=== PATIENT | male | born 1965 | race Two or more races ===

== ENCOUNTER 2022-01-30 17:34 | Emergency (ER) | payer OTHER ==
[~2022-01-30] VITALS: Ht 165.1 cm; Wt 68.0 kg
[2022-01-30] MEDS ORDERED: HYDROMORPHONE 1 MG/1 ML DISP.SYRIN ONE ×2 (17:39→21:34)
[2022-01-30] MEDS ORDERED: ONDANSETRON 4 MG/2 ML VIAL ONE (17:39)
[2022-01-30] MEDS ORDERED: IV NORMAL SALINE 1000 ML BAG IV ONE (17:45)
[2022-01-30] MEDS ORDERED: ONDANSETRON 4 MG/2 ML VIAL IV ONE (17:45)
[2022-01-30] MEDS ORDERED: HYDROMORPHONE 1 MG/1 ML DISP.SYRIN IV ONE ×2 (17:45→21:00)
--- NOTE | 2022-01-30 17:53 | NUR ---
PT IS IN ROOM #4A. DR LUCIO EVALUATED THE PT.
[2022-01-30 18:02] LABS: HEMATOCRIT 39.4 % (36.7-47.1); MEAN CORPUSCULAR HEMOGLOBIN 28.9 uug (23.8-33.4); PLATELET COUNT (AUTO) 224 K/uL (152-348)
[2022-01-30 18:12] LABS: CREATININE 1.2 mg/dL (0.6-1.3)
[2022-01-30] MEDS ORDERED: HYDROMORPHONE 1 MG/1 ML DISP.SYRIN IV PRN (18:15)
[2022-01-30] MEDS ORDERED: LIDOCAINE 2% (GLYDO= UROJET) 10 ML JELLY MM ONE ×2 (19:39→20:00)
[2022-01-30] MEDS ORDERED: ATEN50TA PO (20:13)
[2022-01-30] MEDS ORDERED: TAMS-3 PO (20:13)
[2022-01-30 20:49] LABS: *BILIRUBIN,URIN NEGATIVE (NEGATIVE); *BLOOD, URINE NEGATIVE (NEGATIVE); *CLARITY,URINE CLEAR (CLEAR); *COLOR,URINE YELLOW (YELLOW); *KETONES,URINE NEGATIVE (NEGATIVE); *UROBILINOGEN,URINE 0.2 E.U./dl (NORMAL); LEUKOCYTE ESTERASE ,URINE NEGATIVE (NEGATIVE); NITRITE, URINE NEGATIVE (NEGATIVE); UGLUCOSE NEGATIVE (NEGATIVE)
--- NOTE | 2022-01-30 23:43 | NUR ---
Recivedd a call from [facility] for transfer info. Patient will be going to [facility] room 907A. Call for report is . ETA of [facility] is [id number].
--- NOTE | 2022-01-30 23:51 | NUR ---
Gave SBAR report to Kaylyn BAIRES from [facility]. Accepting MD is Dr Rosario.
[2022-01-31] MEDS ORDERED: HYDROMORPHONE 1 MG/1 ML DISP.SYRIN ONE (00:52)
--- NOTE | 2022-01-31 01:33 | NUR ---
Gave SBAR report to [facility] ambulance unit [id number] who will transport patient to [facility]. Drained 1liter of clear yellow urine from galvez.
== END 2022-01-31 02:02 ==
LOC: ER 17:37
DX: S72.011A Unspecified intracapsular fracture of right femur, initial encounter for closed fracture (principal); S50.311A Abrasion of right elbow, initial encounter; W11.XXXA Fall on and from ladder, initial encounter; Y93.H9 Activity, other involving exterior property and land maintenance, building and construction; Y92.018 Other place in single-family (private) house as the place of occurrence of the external cause; I10 Essential (primary) hypertension; Z20.822 Contact with and (suspected) exposure to COVID-19
CPT/HCPCS: 36415; 51702; 71045; 73502; 80048; 81003; 85025; 85730; 87426; 93005; 96361; 96374; 96375; 96376; 99285; J1170 ×3; J2405; J7040